=== PATIENT | female | born 1980 | race African-American/Black ===

== ENCOUNTER 2019-05-16 17:21 | Emergency (ER) | payer MEDICAID ==
[~2019-05-16] VITALS: Ht 172.7 cm; Wt 84.0 kg
[2019-05-16 17:35] VITALS: BP 119/91
[2019-05-16] MEDS ORDERED: HYDROXYZINE 25MG TABLET PO ONE (18:15)
== END 2019-05-16 19:42 | disposition home or self-care (01) ==
LOC: ER 17:21
DX: F41.0 Panic disorder [episodic paroxysmal anxiety] (principal)
CPT/HCPCS: 99283

== ENCOUNTER 2021-10-07 07:57 | Emergency (ER) | payer MEDICAID ==
[~2021-10-07] VITALS: Ht 180.3 cm; Wt 90.0 kg
[2021-10-07 09:13] LABS: HEMATOCRIT. 33.7 % (36.0-48.0); HEMOGLOBIN. 11.1 g/dL (12.0-16.0); MEAN PLATELET VOLUME 9.6 fl (7.4-10.4); PLATELET 106 x1000/uL (130-400); RED BLOOD CELL COUNT 3.37 mill/uL (4.2-5.4); RED CELL DISTRIBUTION WIDTH 16.2 % (11.6-14.6)
[2021-10-07 09:21] LABS: CHLORIDE 104 mEq/L (98-107)
[2021-10-07 09:28] LABS: ETHANOL BLOOD < 10 mg/dL
[2021-10-07 09:51] LABS: PLATELET ESTIMATE SLIGHTLY DECREASED
[2021-10-07] MEDS ORDERED: POTASSIUM CHLORIDE 20MEQ TABLET SR PO ONE (10:45)
[2021-10-07 11:39] LABS: CLARITY URINE CLOUDY (CLEAR); COLOR URINE YELLOW (YELLOW); KETONES URINE 1+ (NEGATIVE); LEUKOCYTE ESTERASE URINE NEGATIVE (NEGATIVE); NITRITE URINE NEGATIVE (NEGATIVE); OCCULT BLOOD URINE NEGATIVE (NEGATIVE); PROTEIN URINE TRACE (NEGATIVE); SPECIFIC GRAVITY URINE 1.024 (1.005-1.030); UROBILINOGEN URINE 0.2 E.U./dL (0.2-1.0)
[2021-10-07 11:44] LABS: *AMPHETAMINES SCREEN URINE NEGATIVE (NEGATIVE); *BARBITURATES SCREEN URINE NEGATIVE (NEGATIVE); *BENZODIAZEPINES SCREEN URINE NEGATIVE (NEGATIVE); *COCAINE SCREEN URINE NEGATIVE (NEGATIVE); CANNABINOID URINE SCREEN NEGATIVE (NEGATIVE); METHADONE URINE SCREEN NEGATIVE (NEGATIVE); OPIATES URINE SCREEN NEGATIVE (NEGATIVE); PHENCYCLIDINE URINE SCREEN NEGATIVE (NEGATIVE)
[2021-10-07] MEDS ORDERED: POTASSIUM CHLORIDE 20MEQ TABLET SR PO NR (12:01)
[2021-10-07] MEDS ORDERED: OLANZAPINE 5MG TABLET ODT PO ONE (12:15)
[2021-10-07] MEDS ORDERED: CLONIDINE 0.2MG TABLET PO ONE (13:30)
[2021-10-07 15:29] LABS: VITAMIN B12 SERUM 649 pg/mL (211-911)
[2021-10-07 15:39] LABS: FOLIC ACID (FOLATE) SERUM > 20.00 ng/mL (>5.38)
[2021-10-07] MEDS ORDERED: POTASSIUM CHLORIDE 20MEQ TABLET SR PO SCH (18:40)
[2021-10-07 19:01] LABS: CHLORIDE 105 mEq/L (98-107)
[2021-10-07 19:12] LABS: HCG SCREEN NEGATIVE
[2021-10-07] MEDS ORDERED: LEVETIRACETAM 500MG TABLET PO ONE (19:15)
[2021-10-07] MEDS: FOLIC ACID/VITAMIN B COMP W-C TABLET PO SCH (20:08)
[2021-10-08] MEDS ORDERED: ZIPRASIDONE HCL 40MG CAPSULE PO STA (00:01)
[2021-10-08] MEDS ORDERED: LORAZEPAM 1MG TABLET PO STA (00:02)
[2021-10-08] MEDS: FOLIC ACID/VITAMIN B COMP W-C TABLET PO SCH (10:11)
[2021-10-08] MEDS: LEVETIRACETAM 500MG TABLET PO SCH (21:00)
[2021-10-09] MEDS: FLUOXETINE HCL 10 MG CAPSULE PO SCH (09:00)
[2021-10-09] MEDS: FOLIC ACID/VITAMIN B COMP W-C TABLET PO SCH (09:38)
[2021-10-09] MEDS: ARIPIPRAZOLE 5MG TABLET PO SCH (09:38)
[2021-10-09] MEDS: LEVETIRACETAM 500MG TABLET PO SCH ×2 (09:38→22:01)
[2021-10-10] MEDS: FLUOXETINE HCL 10 MG CAPSULE PO SCH (09:28)
[2021-10-10] MEDS: FOLIC ACID/VITAMIN B COMP W-C TABLET PO SCH (09:28)
[2021-10-10] MEDS: LEVETIRACETAM 500MG TABLET PO SCH ×2 (09:28→09:29)
[2021-10-10] MEDS: ARIPIPRAZOLE 5MG TABLET PO SCH (09:28)
[2021-10-10 18:37] VITALS: BP 139/93
[2021-10-11] MEDS ORDERED: ARIPIPRAZOLE 5MG TABLET PO SCH (09:00)
== END 2021-10-10 19:02 ==
LOC: ER 07:57
DX: F33.3 Major depressive disorder, recurrent, severe with psychotic symptoms (principal); R45.851 Suicidal ideations; Z73.6 Limitation of activities due to disability; D61.818 Other pancytopenia; D72.819 Decreased white blood cell count, unspecified; E87.6 Hypokalemia; R16.0 Hepatomegaly, not elsewhere classified; I10 Essential (primary) hypertension; G40.909 Epilepsy, unspecified, not intractable, without status epilepticus; Z20.822 Contact with and (suspected) exposure to COVID-19
CPT/HCPCS: 36415; 70450; 76705; 80048; 80053; 80305; 80307; 80320; 80329; 81003; 81025; 82140; 82607; 82746; 82962; 84425; 84703; 85025; 99285; C9803; U0003; U0005; G0480